=== PATIENT | male | born 1990 | race Caucasian/White ===

== ENCOUNTER 2023-11-13 20:07 | Emergency (ER) | payer OTHER ==
[2023-11-13 20:12] VITALS: BP 116/75; PULSE 87; RESP 20; TEMP 98.4; BMI 28.8
[2023-11-13] MEDS ORDERED: ACETAMINOPHEN 500 MG TABLET (FP) ONE (20:37)
[2023-11-13] MEDS: ACETAMINOPHEN 500 MG TABLET (FP) PO ONE (20:46)
[2023-11-13 20:51] LABS: BASO % 0.4 % (0-2.0); EOS % 2.1 % (0-4.5); HEMATOCRIT 39.7 % (35.4-49); HEMOGLOBIN 13.1 GM/dL (11.7-16.9); LYMPH % 38.4 % (8-40); MCH 28.2 pg (25.7-33.7); MCHC 32.9 g/dl (32.0-35.9); MEAN CELL VOLUME 85.6 fl (80-96); MEAN PLT VOLUME 8.1 fl (7.5-11.1); MONO % 11.8 % (3.8-10.2); NEUT % 47.3 % (42.8-82.8); PLATELET COUNT 263 10^3/uL (134-434); RBC 4.64 M/mm3 (4.00-5.60); RDW 13.3 % (11.9-15.9); WHITE BLOOD COUNT 4.6 K/mm3 (4.0-10.0)
[2023-11-13 21:07] LABS: POTASSIUM 3.9 mmol/L (3.5-5.1)
[2023-11-13 21:09] LABS: CALCIUM 9.5 mg/dL (8.5-10.1)
[2023-11-13 21:10] LABS: ALBUMIN 4.1 g/dl (3.4-5.0); BLOOD UREA NITROGEN 14.2 mg/dL (7-18)
[2023-11-13 21:14] LABS: BILIRUBIN,TOTAL 0.4 mg/dL (0.2-1); CREATININE 0.9 mg/dL (0.55-1.3); TOT PROT 7.6 g/dl (6.4-8.2)
== END 2023-11-13 21:42 | disposition home or self-care (01) ==
LOC: JER 20:07
DX: B34.9 Viral infection, unspecified (principal); Z20.822 Contact with and (suspected) exposure to COVID-19
CPT/HCPCS: 0241U-QW; 36415; 80053; 83690; 85025; 99283-25